=== PATIENT | male | born 2000 | race Caucasian/White ===

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

== ENCOUNTER 2024-04-10 22:30 | Emergency (ER) | payer BC ==
[2024-04-10 22:37] VITALS: RESP 18; TEMP 97.9
--- NOTE | 2024-04-10 23:40 | ED ---
General Adult HPI - General Chief complaint: Skin/Abscess/Foreign Body Stated complaint: Lft Foot Injury Time Seen by Provider: 04/10/24 22:39 Source: patient, RN notes reviewed, old records reviewed Mode of arrival: ambulatory Limitations: no limitations - History of Present Illness Initial comments: Patient is a 23-year-old male who presents emergency department complaining of left foot and ankle pain. Does have a history of staph infection at this site from a very minimal injury. Is concerned this may have reoccurred. This infection occurred 10 years ago. States he had a piece of plywood fall on it recently approximately a week or 2 ago and since has been having some pain over the anterior aspect of the left ankle as well as left tib-fib. Some redness also extending in a line from that site down towards the toes as well as up into the left tib-fib. Denies any significant pain. Denies fevers or chills. States this is somewhat similar to previous. Denies any obvious fluctuant mass or any other injury. Presents for further evaluation at this time. Has been unable to follow-up with his normal physician that he saw previous for this. - Related Data Previous Rx's Medication Instructions Recorded Cephalexin [Keflex] 500 mg PO Q12HR 7 Days #14 cap 04/11/24 Sulfamethox-Tmp 800-160Mg [Bactrim 1 tab PO Q12HR 7 Days #14 tab 04/11/24 DS 800-160 mg] Allergies Allergy/AdvReac Type Severity Reaction Status Date / Time No Known Allergies Allergy Verified 04/10/24 22:33 Review of Systems ROS Statement: Those systems with pertinent positive or pertinent negative responses have been documented in the HPI. Review of Systems: CONST: Denies fever EYES: Denies blurry vision ENT: Denies nasal congestion C/V: Denies Chest pain RESP: Denies shortness of breath GI: Denies abdominal pain : Denies dysuria SKIN: Endorses red streaking of left ankle. MSK: Endorses left ankle pain NEURO: Denies headache ROS Other: All systems not noted in ROS Statement are negative. Past Medical History Past Medical History: No Reported History History of Any Multi-Drug Resistant Organisms: MRSA Date of last positivie culture/infection: 2010 MDRO Source:: left foot Additional Past Surgical History / Comment(s): left foot Past Psychological History: No Psychological Hx Reported Smoking Status: Vaper Past Alcohol Use History: Rare Past Drug Use History: None Reported General Exam - General Exam Comments Initial Comments: General: Appears in no acute distress. HEAD: Normal with no signs of head trauma. EYES: EOMI. ENT: Hearing grossly intact, normal oropharynx. RESPIRATORY: Clear breath sounds bilaterally. No wheezes, rales, or rhonchi. C/V: Regular rate and rhythm. S1 and S2 auscultated. Peripheral pulses 2+ intact throughout. ABD: Abd is soft, nontender, nondistended EXT: Normal range of motion, no obvious deformity SKIN: Appears to have some lymphangitis of the left ankle and foot. No obvious fluctuance or significant infection otherwise. No wound. Patient does have some erythema localized near prior scars were it appears patient may have had some sort of surgical debridement from prior surgery. NEURO: Alert and oriented x 4. Cranial nerves II-XII intact. No focal sensory or strength deficits. Limitations: no limitations Course Vital Signs 04/10/24 04/11/24 22:33 01:34 Temperature 97.9 F Pulse Rate 108 H 100 Respiratory 18 18 Rate Blood Pressure 148/97 140/90 O2 Sat by Pulse 96 99 Oximetry Medical Decision Making - Medical Decision Making Was pt. sent in by a medical professional or institution (, PA, [employer], urgent care, hospital, or fpc...) When possible be specific @ -No Did you speak to anyone other than the patient for history (EMS, parent, family, police, friend...)? What history was obtained from this source @ -Patient's mother is at bedside and assist with patient's past medical history. Did you review nursing and triage notes (agree or disagree)? Why? @ -I reviewed and agree with nursing and triage notes Were old charts reviewed (outside hosp., previous admission, EMS record, old EKG, old radiological studies, urgent care reports/EKG's, fpc records)? Report findings @ -No old charts were reviewed Differential Diagnosis (chest pain, altered mental status, abdominal pain women, abdominal pain men, vaginal bleeding, weakness, fever, dyspnea, syncope, headache, dizziness, GI bleed, back pain, seizure, CVA, palpatations, mental health, musculoskeletal)? @ -Cellulitis, ankle sprain, lymphangitis. This list is not all inclusive. EKG interpreted by me (3pts min.). @ -None done X-rays interpreted by me (1pt min.). @ -Ankle x-ray and tib-fib x-ray negative for any obvious acute traumatic injury. CT interpreted by me (1pt min.). @ -None done U/S interpreted by me (1pt. min.). @ -None done What testing was considered but not performed or refused? (CT, X-rays, U/S, labs)? Why? @ -None What meds were considered but not given or refused? Why? @ -None Did you discuss the management of the patient with other professionals (professionals i.e. DrRonald, PA, [employer], lab, RT, psych nurse, social welfare administrator, newspaper editor managing, teacher, ground intelligence officer, case assembler)? Give summary @ -No Was smoking cessation discussed for >3mins.? @ -No Was critical care preformed (if so, how long)? @ -No Were there social determinants of health that impacted care today? How? (Homelessness, low income, unemployed, alcoholism, drug addiction, transportation, low edu. Level, literacy, decrease access to med. care, senior living, rehab)? @ -No Was there de-escalation of care discussed even if they declined (Discuss DNR or withdrawal of care, Hospice)? DNR status @ -No What co-morbidities impacted this encounter? (DM, HTN, Smoking, COPD, CAD, Cancer, CVA, ARF, Chemo, Hep., AIDS, mental health diagnosis, sleep apnea, morbid obesity)? @ -None Was patient admitted / discharged? Hospital course, mention meds given and route, prescriptions, significant lab abnormalities, going to OR and other pertinent info. @ -Based on the patient's presentation and physical exam, presents emergency department complaining of left foot and ankle pain as well as concern for possible infection. Vitals currently within acceptable limits. Patient does have a history of a staph infection at this area. He has no systemic complaints otherwise. We will obtain x-rays, as well as basic labs. Will be given a fluid bolus. Patient declines analgesia medications. He was in agreement this plan. Imaging unremarkable. Laboratory studies all within acceptable limits. I reevaluated patient and he is resting comfortably. With his history, as well as concern for cellulitis, he will be empirically started on antibiotics at this time. Given a dose of Bactrim and Keflex as well as a prescription. Patient was in agreement this plan. Strict return precautions discussed. Recommended follow-up with his orthopedic surgeon. I will provide the patient with a prescription for Bactrim, Keflex. I instructed the patient to follow up with their PCP in the next 1-3 days.. I explained that the patient should return to the emergency department if they experience any worsening symptoms. Strict return precautions were discussed with the patient. The patient expressed understanding of these instructions. I answered all questi ons that the patient had. The patient was discharged home in good condition with their prescriptions and follow up information. Undiagnosed new problem with uncertain prognosis? @ -No Drug Therapy requiring intensive monitoring for toxicity (Heparin, Nitro, Insulin, Cardizem)? @ -No Were any procedures done? @ -No Diagnosis/symptom? @ -Cellulitis,Ankle sprain Acute, or Chronic, or Acute on Chronic? @ -Acute Uncomplicated (without systemic symptoms) or Complicated (systemic symptoms)? @ -Uncomplicated Side effects of treatment? @ -None Exacerbation, Progression, or Severe Exacerbation] @ -No Poses a threat to life or bodily function? @ -Unlikely at this time - Lab Data Result diagrams: 04/10/24 23:19 04/10/24 23:19 Lab Results 04/10/24 04/10/24 Range/Units 23:19 23:19 WBC 9.1 (3.8-10.6) k/uL RBC 5.11 (4.30-5.90) m/uL Hgb 15.6 (13.0-17.5) gm/dL Hct 45.3 (39.0-53.0) % MCV 88.6 (80.0-100.0) fL MCH 30.6 (25.0-35.0) pg MCHC 34.5 (31.0-37.0) g/dL RDW 12.4 (11.5-15.5) % Plt Count 245 (150-450) k/uL MPV 7.7 Neutrophils % 57 % Lymphocytes % 27 % Monocytes % 7 % Eosinophils % 6 % Basophils % 1 % Neutrophils # 5.2 (1.3-7.7) k/uL Lymphocytes # 2.5 (1.0-4.8) k/uL Monocytes # 0.7 (0-1.0) k/uL Eosinophils # 0.5 (0-0.7) k/uL Basophils # 0.1 (0-0.2) k/uL Sodium 138 (137-145) mmol/L Potassium 4.0 (3.5-5.1) mmol/L Chloride 101 (98-107) mmol/L Carbon Dioxide 28 (22-30) mmol/L Anion Gap 9 mmol/L BUN 14 (9-20) mg/dL Creatinine 0.90 (0.66-1.25) mg/dL Est GFR (CKD-EPI)AfAm >90 (>60 ml/min/1.73 sqM) Est GFR (CKD-EPI)NonAf >90 (>60 ml/min/1.73 sqM) Glucose 86 (74-99) mg/dL Calcium 10.0 (8.4-10.2) mg/dL Total Bilirubin 0.9 (0.2-1.3) mg/dL AST 28 (17-59) U/L ALT 26 (4-49) U/L Alkaline Phosphatase 55 (38-126) U/L Total Protein 7.3 (6.3-8.2) g/dL Albumin 4.9 (3.5-5.0) g/dL Disposition Clinical Impression: Cellulitis, Ankle sprain Disposition: HOME SELF-CARE Condition: Good Instructions (If sedation given, give patient instructions): Ankle Sprain (ED), Cellulitis (ED) Prescriptions: Sulfamethox-Tmp 800-160Mg [Bactrim DS 800-160 mg] 1 tab PO Q12HR 7 Days #14 tab Cephalexin [Keflex] 500 mg PO Q12HR 7 Days #14 cap Is patient prescribed a controlled substance at d/c from ED?: No Referrals: Eladio Dorantes MD [Primary Care Provider] - 1-2 days Victoriano Centeno DO [Doctor of Osteopathic Medicine] - 1-2 days Time of Disposition: 01:16
[2024-04-10 23:45] LABS: Basophils # (A) 0.1 k/uL (0-0.2); Basophils % (A) 1 %; Eosinophils # (A) 0.5 k/uL (0-0.7); Eosinophils % (A) 6 %; HCT 45.3 % (39.0-53.0); HGB 15.6 gm/dL (13.0-17.5); Lymphocytes # (A) 2.5 k/uL (1.0-4.8); Lymphocytes % (A) 27 %; MCH 30.6 pg (25.0-35.0); MCHC 34.5 g/dL (31.0-37.0); MCV 88.6 fL (80.0-100.0); Mean Platelet Volume 7.7; Monocytes # (A) 0.7 k/uL (0-1.0); Monocytes % (A) 7 %; Neutrophils # (A) 5.2 k/uL (1.3-7.7); Neutrophils % (A) 57 %; Platelet Count 245 k/uL (150-450); RBC 5.11 m/uL (4.30-5.90); RDW 12.4 % (11.5-15.5); WBC 9.1 k/uL (3.8-10.6)
[2024-04-11 00:31] LABS: ALT 26 U/L (4-49); AST 28 U/L (17-59); African American GFR (CKD) >90 (>60 ml/min/1.73 sqM); Albumin 4.9 g/dL (3.5-5.0); Alkaline Phosphatase 55 U/L (38-126); Anion Gap 9 mmol/L; Blood Urea Nitrogen 14 mg/dL (9-20); Carbon Dioxide 28 mmol/L (22-30); Chloride 101 mmol/L (98-107); Glucose 86 mg/dL (74-99); Non-African American GFR(CKD) >90 (>60 ml/min/1.73 sqM); Sodium 138 mmol/L (137-145); Total Bilirubin 0.9 mg/dL (0.2-1.3); Total Protein 7.3 g/dL (6.3-8.2)
--- NOTE | 2024-04-11 00:51 | XR ---
EXAM: XR Left Ankle Complete, 3 or More Views CLINICAL HISTORY: ITS.REASON XR Reason: pain TECHNIQUE: Frontal, lateral and oblique views of the left ankle. COMPARISON: No relevant prior studies available. FINDINGS: Bones/joints: Unremarkable. No acute fracture. No dislocation. Soft tissues: Unremarkable. IMPRESSION: Normal left ankle x-rays.
--- NOTE | 2024-04-11 00:51 | XR ---
EXAM: XR Left Tibia and Fibula, 2 Views CLINICAL HISTORY: ITS.REASON XR Reason: pain TECHNIQUE: Frontal and lateral views of the left tibia and fibula. COMPARISON: No relevant prior studies available. FINDINGS: Bones/joints: Unremarkable. No acute fracture. No dislocation. Soft tissues: Unremarkable. No radiopaque foreign body. IMPRESSION: Normal left tibia and fibula x-rays.
[2024-04-11] MEDS: SULFAMETHOX-TMP 800-160MG 1 EACH TAB PO STA (01:23)
[2024-04-11] MEDS: CEPHALEXIN 500 MG CAP PO STA (01:23)
[2024-04-11 01:35] VITALS: BP 140/90; PULSE 100
== END 2024-04-11 01:35 | disposition home or self-care (01) ==
LOC: EC 22:30
DX: S93.402A Sprain of unspecified ligament of left ankle, initial encounter (principal); L03.116 Cellulitis of left lower limb; F17.290 Nicotine dependence, other tobacco product, uncomplicated; W20.8XXA Other cause of strike by thrown, projected or falling object, initial encounter
CPT/HCPCS: 36415; 80053; 85025; 99283